=== PATIENT | male | born 1960 | race Caucasian/White ===

== ENCOUNTER 2017-12-17 06:10 | Day surgery (SDC) | payer OTHER ==
--- NOTE | 2017-12-12 09:14 | RAD ---
EXAM DESCRIPTION: XR CHEST 2 VIEWS CLINICAL HISTORY: Preoperative respiratory evaluation. Z01.811 COMPARISON: None TECHNIQUE: PA/lateral FINDINGS: Heart size is normal. The lungs are clear. No acute bony abnormality. IMPRESSION: No acute cardiopulmonary process. Electronically signed by: Foreign Flores MD 12/12/2017 9:13 AM [facility]
[~2017-12-17 06:10] MED LIST: LACTATED RINGERS 1,000 ML ONE; SODIUM CHL 0.9% 100ML MINI-BAG 100 ML IVPB ONE; ceFAZolin SODIUM 1 GM VIAL ONE
[2017-12-17] MEDS ORDERED: PROPOFOL 200 MG/20 ML VIAL IV ONE (07:00)
[2017-12-17] MEDS ORDERED: DEXAMETHASONE INJ 10 MG/ML VIAL ONE (07:00)
[2017-12-17] MEDS ORDERED: METOCLOPRAMIDE HCL INJ 10 MG/2 ML VIAL ONE (07:00)
[2017-12-17] MEDS ORDERED: LIDOCAINE 1% 10 ML VIAL INJ ONE (07:00)
[2017-12-17] MEDS ORDERED: raNITIdine HCL INJ 25 MG/ML VIAL ONE (07:00)
[2017-12-17] MEDS ORDERED: SODIUM CHLORIDE 0.9% 50 ML VIAL ONE (07:00)
[2017-12-17] MEDS ORDERED: HYDROmorphone HCL INJ 2 MG/ML VIAL ONE (08:24)
[2017-12-17] MEDS ORDERED: MIDAZOLAM INJ 2 MG/2 ML VIAL ONE (08:25)
[2017-12-17] MEDS ORDERED: BUPIVACAINE 0.25% W/EPI 50 ML VIAL INJ ONE (08:25)
--- NOTE | 2017-12-17 11:45 | OP ---
DATE OF PROCEDURE: 12/17/17 PREOPERATIVE DIAGNOSIS: 1. Recurrent right inguinal hernia. POSTOPERATIVE DIAGNOSIS: 1. Recurrent right inguinal hernia. PROCEDURE: 1. Repair of recurrent right inguinal hernia. SURGEON: Silvano Rosales MD. PAINTER SKI EDGE: None. ANESTHESIA: General laryngeal mask anesthesia and local infiltration of 0.25% Marcaine with epinephrine. INDICATION: The patient is a 57-year-old male who underwent bilateral herniorrhaphies in 2016. He has recently developed a tender mass in his right groin and physical examination is consistent with a recurrent right inguinal hernia. The patient was brought to the Surgical Suite today for hernia repair after the risks, benefits and alternatives were discussed and accepted. FINDINGS: Upon exploration, there was a large amount of dense scarring around the external inguinal ring. Deep to that was found a defect just lateral to the pubic tubercle and superior. It had preperitoneal fat within it. No other pathology was identified. The floor of the canal lateral to the defect appeared to be strong. PROCEDURE: After adequate general anesthesia was obtained, the patient was prepped and draped in the usual sterile manner. At this point, a surgical time- out was taken. The previous scar was infiltrated with local anesthesia and the skin was incised with a knife. Dissection was carried down through the skin and subcutaneous tissue using electrocautery and blunt dissection. Eventually, the external oblique fascia was identified and dissection was carried medially until the external inguinal ring was identified. Careful, tedious dissection was done to dissect the lateral aspect of the external inguinal ring identifying the edge of the external oblique fascia. The external oblique fascia was then divided laterally using electrocautery, not quite to the internal inguinal ring. The floor of the canal was dissected free from the external oblique fascia along with the cord structures using blunt dissection and electrocautery. The self-retaining retractor was placed at this level. At this point, the cord structures were dissected free from the hernia and this direct hernia was dissected free circumferentially using electrocautery and blunt dissection. Eventually, it was reduced below the floor of the canal. The tissues were noted to be dissected free circumferentially around the defect. Approximately 5x3 cm mesh patch was introduced under the defect and sutured circumferentially with interrupted 0 Prolene simple sutures. When this was done, the wound was irrigated with saline. Hemostasis was noted to be adequate, so an approximately 5x4 cm patch was then sutured over the floor of the canal medially over the other repair and sutured in place with 2-0 Nylon ligatures. When this was done, the cord structures were placed back in the canal. The external oblique fascia was then closed with running 3-0 Vicryl suture. The cord and subcutaneous tissue above, below and lateral to the incision were infiltrated with local anesthesia. The Kaushal's fascia was approximated with interrupted 3-0 Chromic suture. Skin edges were approximated with skin stapler. Sterile pressure dressing was applied. The patient was awakened and taken to the Recovery Room in good and stable condition. Estimated blood loss was 50 to 75 mL. All sponge, needle and instrument counts were correct. #[id number] [facility]
[2017-12-17] MEDS ORDERED: HYDROcodone 5MG/APAP 325MG 1 EA TAB ONE (12:01)
[2017-12-17 13:29] VITALS: BP 113/76; TEMP 97.4; O2SAT 95
== END 2017-12-17 12:55 | disposition home or self-care (01) ==
LOC: AMB 06:10
PROVIDERS: ATTEND Surgery
DX: K40.91 Unilateral inguinal hernia, without obstruction or gangrene, recurrent (principal); K21.9 Gastro-esophageal reflux disease without esophagitis; N40.0 Benign prostatic hyperplasia without lower urinary tract symptoms; Z88.8 Allergy status to other drugs, medicaments and biological substances
CPT/HCPCS: 00830; 36415; 49520; 71046; 80048; 81001; 85025; 93005; A4216; C1781; J0690; J1100; J1170; J2250; J2765; J2780; J3490; J7050; J7120

== ENCOUNTER → 2020-05-25 | Outpatient (CLI) | payer OTHER | LOC: GMAM 10:49 | PROVIDERS: ATTEND Family Medicine | DX: Z12.5 Encounter for screening for malignant neoplasm of prostate (principal); M79.672 Pain in left foot ==

== ENCOUNTER 2020-07-21 02:46 | Emergency (ER) | payer OTHER ==
--- NOTE | 2020-07-21 02:49 | ED.PDOC ---
History of Present Illness - General Time Seen by Provider: 07/21/20 02:49 - History of Present Illness Initial Comments: 60 yo male no known PMH comes in with c/c of one day of sore throat, feels like razor blades, shortness of breath, cough. Unsure if he has fever. no known co ntacts with covid. no n/v/d. + congestion. Unable to eat anything due the pain. Allergies/Adverse Reactions: Allergies Celecoxib [From Celebrex] Allergy (Verified 07/21/20 03:17) Home Medications: Ambulatory Orders Dutasteride [Avodart] 0.5 mg PO DAILY 10/19/15 Omeprazole 40 mg PO DAILY 10/19/15 Tamsulosin HCl [Flomax] 0.4 mg PO DAILY 10/19/15 Penicillin V Potassium 500 mg PO BID 10 Days #20 tab 07/21/20 Review of Systems - Review of Systems Constitutional: Denies: chills, fever EENTM: States: ear pain, nose congestion, throat pain, mouth pain. Denies: blurred vision, ear discharge Respiratory: States: cough, short of breath. Denies: orthopnea, wheezing Cardiology: Denies: chest pain, palpitations Gastrointestinal/Abdominal: States: abdominal pain. Denies: nausea, vomiting Genitourinary: Denies: dysuria, frequency Musculoskeletal: Denies: back pain, joint pain, muscle pain, neck pain Skin: Denies: change in color Neurological: Denies: headache, numbness, paresthesia, seizure, tingling, tremors, weakness Endocrine: Denies: increased hunger, increased thirst, increased urine, unexplained weight loss Hematologic/Lymphatic: Denies: anemia, blood clots Past Medical History (General) - Patient Medical History Hx Congestive Heart Failure: No Hx Diabetes: No Hx MRSA: No Family Medical History - Family History Mother Family History: No Known Living Status: Non Contributory this Encounter: Non Contributory for this Encounter Physical Exam - Physical Exam General Appearance: Alert, Comfortable, No apparent distress Eye Exam: bilateral normal Ears, Nose, Throat: hearing grossly normal, normal ENT inspection, pharyngeal erythema, other - tonsilar stones Neck: non-tender, full range of motion, supple, normal inspection Respiratory: chest non-tender, lungs clear, normal breath sounds, no respiratory distress, no accessory muscle use Cardiovascular/Chest: normal peripheral pulses, regular rate, rhythm, no edema, no gallop, no JVD, no murmur Peripheral Pulses: radial,right: 2+, radial,left: 2+ Gastrointestinal/Abdominal: normal bowel sounds, non tender, soft, no organomegaly Rectal Exam: deferred Back Exam: normal inspection, no CVA tenderness, no vertebral tenderness Extremity: normal range of motion, non-tender, normal inspection, no pedal edema, no calf tenderness, normal capillary refill 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 patient given 10 mg dexamethasone. also give viscous lidocaine with mylanta. no benzocaine spray. Will give chloraseptic spray. patient continues to complain of significant pain. Will get CT neck of soft tissue to evaluate for deep tissue infections. CT soft tissue neck negative for acute pathology. Patient stable. Blood work overall unremarkable. Strep +, pending COVID test. 07/21/20 03:10 RESPIRATORY PANEL 2 Stat Laboratory Results WBC 9.9 K/mm3 (4.8-10.8) 07/21/20 03:00 RBC 4.54 M/mm3 (4.70-6.10) L 07/21/20 03:00 Hgb 14.4 gm/dL (14.0-18.0) 07/21/20 03:00 Hct 40.3 % (42.0-52.0) L 07/21/20 03:00 MCV 88.7 fl (80.0-94.0) 07/21/20 03:00 MCH 31.6 pg (27.0-31.0) H 07/21/20 03:00 MCHC 35.7 g/dL (33.0-37.0) 07/21/20 03:00 RDW 13.1 % (11.5-14.5) 07/21/20 03:00 Plt Count 232 K/mm3 (130-400) 07/21/20 03:00 MPV 7.2 fl (7.40-10.4) L 07/21/20 03:00 Absolute Neuts (auto) 7.40 K/uL (1.8-6.8) H 07/21/20 03:00 Absolute Lymphs (auto) 1.70 K/uL (1.0-3.4) 07/21/20 03:00 Absolute Monos (auto) 0.60 K/uL (0.2-0.8) 07/21/20 03:00 Absolute Eos (auto) 0.20 K/uL (0.0-0.4) 07/21/20 03:00 Absolute Basos (auto) 0.00 K/uL (0.0-0.1) 07/21/20 03:00 Neutrophils % 74.7 % (42.0-78.0) 07/21/20 03:00 Lymphocytes % 17.5 % (20.0-50.0) L 07/21/20 03:00 Monocytes % 6.0 % (2.0-9.0) 07/21/20 03:00 Eosinophils % 1.5 % (1.0-5.0) 07/21/20 03:00 Basophils % 0.3 % (0.0-2.0) 07/21/20 03:00 D-Dimer, Quantitative 140.0 ng/ml (131-400) 07/21/20 03:00 Sodium 138 mmol/L (135-145) 07/21/20 03:00 Potassium 3.9 mmol/L (3.6-5.0) 07/21/20 03:00 Chloride 102 mmol/L (101-111) 07/21/20 03:00 Carbon Dioxide 28 mmol/L (21-31) 07/21/20 03:00 Anion Gap 11.9 (12-18) L 07/21/20 03:00 BUN 13 mg/dL (7-18) 07/21/20 03:00 Creatinine 1.02 mg/dL (0.6-1.3) 07/21/20 03:00 BUN/Creatinine Ratio 12.7 (10-20) 07/21/20 03:00 Random Glucose 114 mg/dL (70-105) H 07/21/20 03:00 Serum Osmolality 276.7 mOsm/L (275-295) 07/21/20 03:00 Calcium 8.8 mg/dL (8.4-10.2) 07/21/20 03:00 Total Bilirubin 0.8 mg/dL (0.2-1.0) 07/21/20 03:00 AST 21 IU/L (10-42) 07/21/20 03:00 ALT 25 IU/L (10-60) 07/21/20 03:00 Alkaline Phosphatase 100 IU/L (42-121) 07/21/20 03:00 Serum Total Protein 7.9 gm/dL (6.4-8.2) 07/21/20 03:00 Albumin 4.2 g/dl (3.2-5.5) 07/21/20 03:00 Globulin 3.7 gm/dL (2.3-3.5) H 07/21/20 03:00 Albumin/Globulin Ratio 1.1 (1.1-1.9) 07/21/20 03:00 Group A Strep Rapid Positive (NEGATIVE) H 07/21/20 03:00 07/21/20 04:43 covid negative, rhinovirus +. pain improved slightly. The data reviewed when caring for this patient included: nurse notes, prior records, etc. The history and assessments from nurses notes were reviewed and considered, and the patient's home medication list was also reviewed and considered. My assessment and the results of testing completed here in the ED were discussed with the patient/family. All questions were answered, and they express understanding of my assessment and the plan. They have been instructed to return if their symptoms worsen, and have been asked to follow up with their primary care physician to recheck today's presenting complaint. return precautions given. I have reviewed medication, benefits, alternatives and side effects. Patient decided to proceed with medication. Patient discharged in stable condition. Cris Alva DO #[id number] Departure - Departure Clinical Impression: Streptococcal pharyngitis, Rhinovirus infection Time of Disposition: 05:02 Disposition: Discharge to Home or Self Care Instructions: Sore Throat, Adult (DC), Viral Tests, Viral Upper Respiratory Infection, Adult (DC) Diet: resume usual diet Activity: increase activity as tolerated Referrals: Foreign Queen MD [Primary Care Provider] - 1-5 Days Prescriptions: Penicillin V Potassium 500 mg PO BID 10 Days #20 tab Home Medications: Ambulatory Orders Dutasteride [Avodart] 0.5 mg PO DAILY 10/19/15 Omeprazole 40 mg PO DAILY 10/19/15 Tamsulosin HCl [Flomax] 0.4 mg PO DAILY 10/19/15 Penicillin V Potassium 500 mg PO BID 10 Days #20 tab 07/21/20 Additional Instructions: Honey for both cough and sore throat, salt water gargles as instructed, chloraseptic throat spray as needed for pain.
[2020-07-21] MEDS ORDERED: DEXAMETHASONE INJ 10 MG/ML VIAL ONE (02:56)
[2020-07-21] MEDS ORDERED: ALUM & MAG HYDROX-SIMETHICONE 30 ML UD ONE (03:14)
[2020-07-21] MEDS ORDERED: LIDOCAINE HCL 2% (MOUTH-THROAT) 15 ML UD ONE (03:14)
[2020-07-21] MEDS: ALUM & MAG HYDROX-SIMETHICONE 30 ML, LIDOCAINE VISCOUS 2% 15 ML PO ONE ×2 (03:18)
--- NOTE | 2020-07-21 03:29 | RAD ---
EXAM DESCRIPTION: X-ray single view chest. CLINICAL HISTORY: 60 years Male, short of breath COMPARISON: 12/12/2017 TECHNIQUE: Single portable x-ray view of the chest performed on 07/21/2020 at 3:18 AM FINDINGS: The lungs are well expanded and are clear. There is no evidence of a pneumothorax. The cardiac silhouette is normal in size and configuration. The mediastinal contours are normal. No acute osseous abnormality is identified. No focal soft tissue abnormalities are seen. Lines and tubes: None. IMPRESSION: No evidence of acute intrathoracic disease. Electronically signed by: Karen Miranda DO 07/21/2020 3:28 AM CDT
[2020-07-21] MEDS: BENZOCAINE 20% TOP ONE (03:41)
[2020-07-21] MEDS: SODIUM CHLORIDE 0.9% 500ML 500 ML IVS ONE (04:09)
[2020-07-21] MEDS ORDERED: PHENOL THROAT SPRAY 180 ML BTTL MT ONE (04:43)
[2020-07-21] MEDS: PHENOL THROAT SPRAY 180 ML BTTL MT PRN (04:48)
--- NOTE | 2020-07-21 04:49 | CT ---
EXAM DESCRIPTION: Soft Tissue Neck w/Contrast CLINICAL HISTORY: 60 years Male, throat pain. difficulty swallowing, + strep COMPARISON: None Available. TECHNIQUE: CT of the neck soft tissues obtained following the uncomplicated intravenous administration of iodinated contrast. Multilevel degenerative change of the cervical spine. No acute osseous abnormality identified. Mucosal thickening of the paranasal sinuses. Mastoid air cells are relatively well aerated. FINDINGS: Soft tissue: Visualized orbital contents are unremarkable. No acute abnormalities of the parapharyngeal space, retropharyngeal space, or pharyngeal mucosal space. The tongue base is symmetric. Minimal punctate calcifications of the right faucial tonsils. No abnormalities of the parotid or submandibular glands. No cervical lymphadenopathy. Carotid artery atherosclerosis. Epiglottis and vallecula are unremarkable. No definite abnormalities of the larynx or vocal cords. Visualized thyroid gland and visceral space are unremarkable. Visualized lung apices are clear. Bones: No destructive bone lesions identified. Multilevel degenerative change of the cervical spine. No acute osseous abnormality identified. Mucosal thickening of the paranasal sinuses. Mastoid air cells are relatively well aerated. IMPRESSION: 1. No acute abnormality identified within the neck soft tissues. This exam was performed according to our departmental dose-optimization program, which includes automated exposure control, adjustment of the mA and/or kV according to patient size and/or use of iterative reconstruction technique. Electronically signed by: Camilo Rivers 07/21/2020 4:48 AM CDT
[2020-07-21 05:09] VITALS: BP 130/90; TEMP 98.3; O2SAT 97
== END 2020-07-21 05:09 | disposition home or self-care (01) ==
LOC: ER 02:46
DX: J02.0 Streptococcal pharyngitis (principal); B34.8 Other viral infections of unspecified site; Z88.8 Allergy status to other drugs, medicaments and biological substances; Z20.828 Contact with and (suspected) exposure to other viral communicable diseases
CPT/HCPCS: 70491; 71045; 80053; 85025; 85379; 87635; 87880; J1100; J7040